=== PATIENT | male | born 1995 | race Caucasian/White ===

== ENCOUNTER 2020-12-20 10:51 | Emergency (ER) | payer SELFPAY ==
[~2020-12-20] VITALS: Ht 188 cm; Wt 94.3 kg
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
[2020-12-20] MEDS ORDERED: LIDOCAINE-MPF 1%, 5ML ONE ×2 (11:48→13:29)
[2020-12-20] MEDS ORDERED: LIDOCAINE 1%-EPI 1:100K, 20ML INFIL ONE (12:00)
[2020-12-20] MEDS ORDERED: DIPH,PERTUSS(ACELL),TET VAC/PF 0.5 ML IM-VACC ONE (12:00)
[2020-12-20] MEDS ORDERED: LIDOCAINE 1%-EPI 1:100K, 20ML SQ ONE (12:30)
[2020-12-20 13:25] VITALS: BP 122/75
[2020-12-20] MEDS ORDERED: LIDOCAINE 1%-EPI 1:100K, 20ML ONE (13:33)
[2020-12-20] MEDS ORDERED: NEOSPORIN OINT. PKT 1 PACKET ONE (14:14)
--- NOTE | 2020-12-20 14:53 | NUR ---
patient refused ct exams
== END 2020-12-20 14:55 | disposition home or self-care (01) ==
LOC: ED 14:49
DX: S01.81XA Laceration without foreign body of other part of head, initial encounter (principal); V27.4XXA Motorcycle driver injured in collision with fixed or stationary object in traffic accident, initial encounter; Y93.89 Activity, other specified; Y92.89 Other specified places as the place of occurrence of the external cause; Y99.8 Other external cause status
CPT/HCPCS: 12054; 99284